=== PATIENT | male | born 1940 ===

== ENCOUNTER 2018-12-03 07:36 | Inpatient (IN) | payer MEDICARE ==
[2018-12-03] MEDS ORDERED: Sodium Chloride 0.9% 500 ML IV STA (08:27)
[2018-12-03] MEDS ORDERED: Albuterol-Ipratrop 3 mg / 0.5 (3 ml) UD IH STA (08:27)
--- NOTE | 2018-12-03 08:29 | ED PDOC ---
HPI: General Adult Time Seen by Provider: 12/03/18 07:45 Chief Complaint (Nursing): Shortness Of Breath Chief Complaint (Provider): Bodyaches History Per: Patient, Family History/Exam Limitations: no limitations Onset/Duration Of Symptoms: Days (3 months) Additional Complaint(s): Pt. with body aches for 3 months. Has chest pain, dyspnea. 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 He is to get biopsies done, but with increased symptoms came to the ER. No nausea, vomit, diarrhea, weakness. No fever. Is losing voice for sometime. No sore throat. No numbness, tingles. Sees Dr. Manda Benavides. Is on no meds and no tx yet. Tumors still getti ng evaluated. Past Medical History Reviewed: Nursing Documentation, Vital Signs Vital Signs: Last Vital Signs Temp 97 F L 12/03/18 07:47 Pulse 84 12/03/18 07:47 Resp 18 12/03/18 07:47 BP 128/74 12/03/18 07:47 Pulse Ox 98 12/03/18 08:27 - Medical History Other PMH: tumors - Family History Family History: States: Unknown Family Hx - Living Arrangements Living Arrangements: With Family - Allergies Allergies/Adverse Reactions: Allergies Allergy/AdvReac Type Severity Reaction Status Date / Time Penicillins Allergy Verified 12/03/18 08:13 Review of Systems ROS Statement: Except As Marked, All Systems Reviewed And Found Negative Cardiovascular: Positive for: Chest Pain Respiratory: Positive for: Shortness of Breath Musculoskeletal: Positive for: Other (diffuse pain) Physical Exam - Reviewed Nursing Documentation Reviewed: Yes Vital Signs Reviewed: Yes - Physical Exam Appears: Positive for: Non-toxic, No Acute Distress Head Exam: Positive for: ATRAUMATIC, NORMAL INSPECTION, NORMOCEPHALIC Skin: Positive for: Normal Color, Warm, DRY Eye Exam: Positive for: EOMI, Normal appearance, PERRL ENT: Positive for: Normal ENT Inspection Neck: Positive for: Normal, Painless ROM Cardiovascular/Chest: Positive for: Regular Rate, Rhythm. Negative for: Tachycardia Respiratory: Positive for: Decreased Breath Sounds. Negative for: Accessory Muscle Use Gastrointestinal/Abdominal: Positive for: Normal Exam, Soft. Negative for: Tenderness Back: Positive for: Normal Inspection. Negative for: L CVA Tenderness, R CVA Tenderness Extremity: Positive for: Normal ROM. Negative for: Tenderness, Pedal Edema Neurological/Psych: Positive for: Awake, Alert, Normal Tone, furniture and bedding inspector II-XII. Negative for: Facial Droop - Laboratory Results Result Diagrams: 12/03/18 08:45 12/03/18 08:45 Lab Results: 11.3 wbc, lacatate 2.5 - ECG ECG: Positive for: Interpreted By Me, Viewed By Me ECG Rhythm: Positive for: Normal QRS, Normal ST Segment, Sinus Rhythm O2 Sat by Pulse Oximetry: 98 Pulse Ox Interpretation: Normal - CT Scan/US ct Other Rad Studies (CT/US): Read By Radiologist Other Rad Interpretation: mass on lob left, mass effect on some vessels - Progress ED Course And Treament: 1200: Spoke with Dr. Yepez. Will admit. AAOx3. Continue nasal oxygen. Disposition - Clinical Impression Clinical Impression: Hypoxia, Lung mass - Patient ED Disposition Is Patient to be Admitted: Yes Counseled Patient/Family Regarding: Studies Performed, Diagnosis - Disposition Disposition Time: 12:01 Condition: FAIR - Pt Status Changed To: Hospital Disposition Of: Inpatient - Admit Certification Admit to Inpatient:: After my assessment, the patient will require hospitalization for at least two midnights. This is because of the severity of symptoms shown, intensity of services needed, and/or the medical risk in this patient being treated as an outpatient. - POA Present On Arrival: None
[2018-12-03] MEDS ORDERED: Albuterol-Ipratrop 3 mg / 0.5 (3 ml) UD ONE (08:46)
[2018-12-03 09:07] LABS: BASO # 0.1 K/uL (0.0-0.2); BASO % 0.5 % (0.0-2.0); EOS # 0.1 K/uL (0.0-0.7); EOS % 1.2 % (0.0-4.0); HEMOGLOBIN 9.7 g/dL (12.0-18.0); LYMPH # 0.5 K/uL (1.0-4.3); LYMPH % 4.2 % (20.0-40.0); MEAN CELL VOLUME 80.7 fl (80.0-94.0); MEAN CORPUSCULAR HEMOGLOBIN 25.4 pg (27.0-31.0); MEAN CORPUSCULAR HGB CONC 31.5 g/dL (33.0-37.0); MEAN PLATELET VOLUME 7.8 fl (7.2-11.7); MONO # 0.7 K/uL (0.0-0.8); MONO % 5.8 % (0.0-10.0); NEUT % 88.3 % (50.0-75.0); PLATELET COUNT 296 K/uL (130-400); RED CELL DISTRIBUTION WIDTH 16.3 % (11.5-14.5); WHITE BLOOD COUNT 11.3 K/uL (4.8-10.8)
[2018-12-03 09:11] LABS: ABG ALLEN TEST YES; ARTERIAL BLOOD GAS HCO3 26.4 mmol/L (21-28); ARTERIAL BLOOD GAS O2 SAT 50.9 % (95-98); ARTERIAL BLOOD GAS PCO2 52 mm/Hg (35-45); ARTERIAL BLOOD GAS PH 7.37 (7.35-7.45); ARTERIAL BLOOD GAS PO2 27 mm/Hg (80-100); ARTERIAL BLOOD GAS TCO2 31.7 mmol/L (22-28)
[2018-12-03 09:21] LABS: INR 1.3; PROTHROMBIN TIME 14.7 Seconds (9.8-13.1)
[2018-12-03 09:23] LABS: ALB/GLOB RATIO 0.9 (1.0-2.1); ALBUMIN 2.6 g/dL (3.5-5.0); ALT/SGPT 44 U/L (21-72); AST/SGOT 21 U/L (17-59); BLOOD UREA NITROGEN 21 mg/dl (9-20); CALCIUM 7.7 mg/dL (8.4-10.2); GFR NON-AFRICAN AMERICAN > 60
[2018-12-03 09:24] LABS: PARTIAL THROMBOPLASTIN TIME 28.3 Seconds (25.6-37.1)
[2018-12-03 09:30] LABS: B-TYPE NATRIURETIC PEPTIDE 542 pg/ml (0-900)
[2018-12-03] MEDS ORDERED: Sodium Chloride 0.9% 50 ML IV ONE (10:02)
[2018-12-03] MEDS ORDERED: Iodixanol 320 MG/ML 100 ML BOTTLE IV ONE (10:02)
[2018-12-03 10:32] LABS: BANDS 2 % (0-2); EOSINOPHIL 3 % (0-7); LYMPHOCYTE 4 % (20-50); MONOCYTE 3 % (0-10); NEUTROPHIL 88 % (42-75); TOTAL CELLS COUNTED 100
[2018-12-03 10:33] LABS: ANISOCYTOSIS SLIGHT; HYPOCHROMIC MODERATE; OVALOCYTES SLIGHT; PLATELET CLUMPS PRESENT; PLATELET ESTIMATE NORMAL (NORMAL)
--- NOTE | 2018-12-03 11:08 | RAD ---
Date of service: 12/03/2018 HISTORY: dyspnea COMPARISON: No prior. TECHNIQUE: 1 view obtained. FINDINGS: LUNGS: Extensive opacity at both lung bases. Possible consolidation. Follow-up advised. PLEURA: Probable small bilateral pleural effusion. No pneumothorax. CARDIOVASCULAR: No aortic atherosclerotic calcification present. Normal cardiac size. No pulmonary vascular congestion. OSSEOUS STRUCTURES: No significant abnormalities. VISUALIZED UPPER ABDOMEN: Normal. OTHER FINDINGS: None. IMPRESSION: Extensive bilateral basilar consolidation. Probable small bilateral pleural effusion. Follow-up advised.
--- NOTE | 2018-12-03 11:24 | CT ---
Date of service: 12/03/2018 PROCEDURE: CT Chest with contrast (Pulmonary Angiogram) HISTORY: chest pain COMPARISON: None available. TECHNIQUE: Axial computed tomography images were obtained of the chest in the pulmonary arterial phase of enhancement. Coronal and sagittal reformatted images were created and reviewed. Intravenous contrast dose: 99 cc Visipaque 320 Radiation dose: Total exam DLP = 287.24 mGy-cm. This CT exam was performed using one or more of the following dose reduction techniques: Automated exposure control, adjustment of the mA and/or kV according to patient size, and/or use of iterative reconstruction technique. FINDINGS: PULMONARY ARTERIES: No evidence of pulmonary arterial embolism. 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 There is narrowing of left pulmonary arterial branches as a result of narrowing from neoplastic tissue. There is no evidence of pulmonary arterial branch occlusion. AORTA: No acute findings. No thoracic aortic aneurysm. There is atherosclerotic calcification of the thoracic aorta. LUNGS: There is a lobulated soft tissue mass in the left hemithorax predominantly occupying the left lower lobe, measuring approximately 8.9 x 13.1 x 11.5 cm. There is mass effect upon the heart shifting the heart somewhat towards the right side. There is direct extension of this soft tissue mass to the left hilum. There are enhancing vessel seen coursing throughout this soft tissue mass. There is a small partially solid opacity in the lingular segment of the left upper lobe measuring approximately 10 mm in diameter. This is seen on series 5, image 62. This is nonspecific and could represent neoplasm or small focal infiltrate. PLEURAL SPACES: There is a moderate right pleural effusion with loculation. There is minimal left pleural effusion. There is a small amount of fluid seen in the right major fissure. HEART: Normal heart size. LYMPH NODES: Extensive mediastinal and bilateral hilar lymphadenopathy. BONES, CHEST WALL: Unremarkable. No fracture or destructive lesion OTHER FINDINGS: Unremarkable. IMPRESSION: 13 cm soft tissue mass occupying the left lower lobe. Direct extension to the left hilum and mediastinum with right hilar lymphadenopathy as well. Loculated right pleural effusion. Minimal left pleural effusion. There is narrowing of the right main pulmonary artery as well as of multiple left pulmonary artery branches, as result of neoplastic mass effect. No evidence of arterial occlusion. No evidence of pulmonary arterial embolism.
[2018-12-03 12:12] LABS: URINE BILIRUBIN NEGATIVE (NEGATIVE); URINE BLOOD NEGATIVE (NEGATIVE); URINE CLARITY SLIGHTY-CLOUDY (Clear); URINE COLOR YELLOW (YELLOW); URINE GLUCOSE (UA) NEG (NEGATIVE); URINE LEUKOCYTE ESTERASE NEG Leu/uL (Negative); URINE PROTEIN 30 mg/dL (NEGATIVE); URINE UROBILINOGEN 0.2-1.0 mg/dL (0.2-1.0)
[2018-12-03] MEDS ORDERED: Morphine 4 MG/ML VIAL IVP PRN ×2 (13:40→14:24)
--- NOTE | 2018-12-03 13:46 | CP.PCM.HP ---
<Pushpa Sofia - Last Filed: 12/03/18 15:53> History of Present Illness - History of Present Illness History of Present Illness: 78-year-old male with PMH of left lower lobe mass and sigmoid colon mass presents to [facility] ED for diffuse body aches, severe right-sided mid-axillary/anterior-axillary pain, left groin pain (at location of hernia), and SOB. Pain began last month but has gotten progressively worse in the last few days. Pt's daughter and medical decision maker present bedside, states he has lost 50 lbs in 1 month, is very weak, unable to ambulate, and has many bouts of hemoptysis daily. Daughter and grandson aware of poor prognosis and would like to progress with comfort care for end of life. Code status unknown as other daughter has advanced directive forms - will bring to [facility] tomorrow. PMD: Dr Irene Oncologist: Dr Manda Shah PMH: denies Meds: denies Allergy: penicillin FHx: denies Surgical Hx: denies Social: denies etoh and illicit drugs, former smoker ROS: all other systems reviewed and negative unless otherwise noted in HPI. Present on Admission - Present on Admission Any Indicators Present on Admission: No Review of Systems - Constitutional Constitutional: As Per HPI Past Patient History - Infectious Disease Hx of Infectious Diseases: None - Past Social History Smoking Status: Former Smoker - PULMONARY Other/Comment: lung CA - HEENT Hx Deafness: Yes (lt. ear hearing aid) - GASTROINTESTINAL Other/Comment: colon tumor - PSYCHIATRIC Hx Substance Use: No - SURGICAL HISTORY Hx Parathyroidectomy: Yes Other/Comment: ear sx Meds Home Medications: Home Medication List Medication Instructions Recorded Confirmed Type Fentanyl 1 each TD Q72 #2 patch.td72 12/04/18 Rx Morphine [Morphine Sulfate] 15 mg PO PRN PRN #3 tab 12/04/18 Rx Allergies/Adverse Reactions: Allergies Allergy/AdvReac Type Severity Reaction Status Date / Time Penicillins Allergy Verified 12/03/18 08:13 Physical Exam - Constitutional Appears: Cachectic, Chronically Ill - Head Exam Head Exam: NORMAL INSPECTION - ENT Exam ENT Exam: Mucous Membranes Dry - Respiratory Exam Respiratory Exam: Chest Wall Tenderness, Decreased Breath Sounds - Cardiovascular Exam Cardiovascular Exam: REGULAR RHYTHM - GI/Abdominal Exam GI & Abdominal Exam: Soft. absent: Tenderness - Extremities Exam Extremities exam: Positive for: normal inspection - Neurological Exam Neurological exam: Alert - Psychiatric Exam Psychiatric exam: Anxious, Depressed - Skin Skin Exam: Pallor Results - Vital Signs Recent Vital Signs: Last Vital Signs Temp 97.7 F 12/03/18 12:41 Pulse 84 12/03/18 12:41 Resp 18 12/03/18 12:41 BP 137/76 12/03/18 12:41 Pulse Ox 96 12/03/18 12:41 - Labs Result Diagrams: 12/03/18 14:13 12/03/18 14:13 Labs: Laboratory Results - last 24 hr 12/03/18 12/03/18 12/03/18 08:45 08:45 08:45 WBC 11.3 H RBC 3.80 L Hgb 9.7 L Hct 30.7 L MCV 80.7 MCH 25.4 L MCHC 31.5 L RDW 16.3 H Plt Count 296 MPV 7.8 Neut % (Auto) 88.3 H Lymph % (Auto) 4.2 L [place] % (Auto) 5.8 Eos % (Auto) 1.2 Baso % (Auto) 0.5 Neut # (Auto) 10.0 H Lymph # (Auto) 0.5 L [place] # (Auto) 0.7 Eos # (Auto) 0.1 Baso # (Auto) 0.1 Neutrophils % (Manual) 88 H Band Neutrophils % 2 Lymphocytes % (Manual) 4 L Monocytes % (Manual) 3 Eosinophils % (Manual) 3 Platelet Estimate Normal Plt Clumps, EDTA Present Hypochromasia (manual) Moderate Anisocytosis (manual) Slight Ovalocytes Slight PT 14.7 H INR 1.3 APTT 28.3 pCO2 pO2 HCO3 ABG pH ABG Total CO2 ABG O2 Saturation ABG Base Excess Johnny Test ABG Potassium Glucose Lactate FiO2 Blood Gas Comments Crit Value Called To Crit Value Called By Crit Value Read Back Blood Gas Notified Time Sodium 137 Potassium 4.2 Chloride 101 Carbon Dioxide 32 H Anion Gap 8 L BUN 21 H Creatinine 0.6 L Est GFR ( Amer) > 60 Est GFR (Non-Af Amer) > 60 Random Glucose 181 H Calcium 7.7 L Total Bilirubin 0.5 AST 21 ALT 44 Alkaline Phosphatase 89 Troponin I < 0.0120 NT-Pro-B Natriuret Pep 542 Total Protein 5.7 L Albumin 2.6 L D Globulin 3.1 Albumin/Globulin Ratio 0.9 L Arterial Blood Potassium Urine Color Urine Clarity Urine pH Ur Specific [place] Urine Protein Urine Glucose (UA) Urine Ketones Urine Blood Urine Nitrate Urine Bilirubin Urine Urobilinogen Ur Leukocyte Esterase Urine RBC (Auto) Urine Microscopic WBC 12/03/18 12/03/18 09:01 11:43 WBC RBC Hgb Hct MCV MCH MCHC RDW Plt Count MPV Neut % (Auto) Lymph % (Auto) [place] % (Auto) Eos % (Auto) Baso % (Auto) Neut # (Auto) Lymph # (Auto) [place] # (Auto) Eos # (Auto) Baso # (Auto) Neutrophils % (Manual) Band Neutrophils % Lymphocytes % (Manual) Monocytes % (Manual) Eosinophils % (Manual) Platelet Estimate Plt Clumps, EDTA Hypochromasia (manual) Anisocytosis (manual) Ovalocytes PT INR APTT pCO2 52 H pO2 27 L* HCO3 26.4 ABG pH 7.37 ABG Total CO2 31.7 H ABG O2 Saturation 50.9 L ABG Base Excess 3.6 H Johnny Test Yes ABG Potassium 4.1 Glucose 169 H Lactate 2.5 H FiO2 21.0 Blood Gas Comments Lac=2.5 Crit Value Called To radha Cat Crit Value Called By 22 Crit Value Read Back Y Blood Gas Notified Time 911 Sodium 138.0 Potassium Chloride 102.0 Carbon Dioxide Anion Gap BUN Creatinine Est GFR ( Amer) Est GFR (Non-Af Amer) Random Glucose Calcium Total Bilirubin AST ALT Alkaline Phosphatase Troponin I NT-Pro-B Natriuret Pep Total Protein Albumin Globulin Albumin/Globulin Ratio Arterial Blood Potassium 4.1 Urine Color Yellow Urine Clarity Slighty-cloudy Urine pH 6.0 Ur Specific [place] 1.054 H Urine Protein 30 Urine Glucose (UA) Neg Urine Ketones Negative Urine Blood Negative Urine Nitrate Negative Urine Bilirubin Negative Urine Urobilinogen 0.2-1.0 Ur Leukocyte Esterase Neg Urine RBC (Auto) 4 H Urine Microscopic WBC 1 Assessment & Plan - Assessment and Plan (Free Text) Assessment: 78-year-old male with PMH of left lower lobe mass and sigmoid colon mass presents to [facility] ED for diffuse body aches, severe right-sided mid-axillary/anterior-axillary pain, left groin pain (at location of hernia), difficulty swallowing and SOB. Abd/Pelvis CT (11/26): 1. apparent 3.7x3.4cm soft tissue mass in the sigmoid colon concerning for neoplasm. Please correlate with endoscopy. 2. Incompletely imaged and characterized mass with central areas of necrosis and few specks of calcification in the left lower lobe. A dedicated CT scan of the chest w/w/out IV contrast is rec for complete eval. Small pleural effusions. 3. Indeterminante 2.0x1.7cm right adrenal gland nodule which may be benign or malignant in this clinical setting. A dedicated CT scan/MRI of the abdomen w/ and w/out IV contrast with adrenal gland protocol would be helpful for definitive characteri zation. Chest CT (12/03): 13cm soft tissue mass occupying the left lower lobe. Direct extension to the left hilum and mediastinum with right hilar lymphadenopathy as well. Loculated right pleaural effusion. Minimal left pleural effusion. There is narrowing of the right main pulmonary artery as well as of multiple left pulmonary artery branches, as result of neoplastic mass effect. No evidence of arterial occlusion. No evidence of pulmonary arterial embolism. Plan: Hypoxia secondary to mass effect d/t lung mass -pO2 27, pCO2 52, ABG O2 sat 50.9 -Requiring O2 NC to maintain SPO2 >93% -Pain control PRN: Ultram 50 mild pain, Morphine 2gm moderate pain, Morphine 4gm severe pain -Oncology consult, Dr Shah, inputs and rec appreciated -Pallative care consult, input and rec appreciated -Regular diet -Monitor respiratory status DVT Prophylaxis -SCD Code Status -Code status: Unknown -Full code; advance directive brought tomorrow <Nai Yepez - Last Filed: 12/05/18 15:50> Results - Vital Signs Recent Vital Signs: Last Vital Signs Temp 97.1 F L 12/04/18 15:15 Pulse 77 12/04/18 15:15 Resp 18 12/04/18 15:15 BP 135/70 12/04/18 15:15 Pulse Ox 95 12/04/18 15:15 - Labs Result Diagrams: 12/03/18 14:13 12/03/18 14:13 Attending/Attestation - Attestation I have personally seen and examined this patient.: Yes I have fully participated in the care of the patient.: Yes I have reviewed all pertinent clinical information: Yes Notes (Text): This is a 78-year-old male with a past medical history of both sigmoid colon mass as well as a mass in his left lower lung lobe. He presented with hypoxia, diffuse body aches as well as severe right mid axillary tenderness due to soft tissue mass appreciated. Hematology oncology consult appreciated, patient to receive further imaging studies to evaluate extent of metastatic disease. Pain control at this time with morphine as well as fentanyl for maintenance. Patient also meet with palliative care for home hospice consideration.
[2018-12-03 14:36] LABS: HEMOGLOBIN 10.8 g/dL (12.0-18.0); MEAN CELL VOLUME 80.3 fl (80.0-94.0); MEAN CORPUSCULAR HEMOGLOBIN 25.3 pg (27.0-31.0); MEAN CORPUSCULAR HGB CONC 31.5 g/dL (33.0-37.0); RBC 4.25 Mil/uL (4.40-5.90); RED CELL DISTRIBUTION WIDTH 16.1 % (11.5-14.5); WHITE BLOOD COUNT 11.4 K/uL (4.8-10.8)
[2018-12-03 14:38] LABS: BLOOD UREA NITROGEN 19 mg/dl (9-20); CALCIUM 8.2 mg/dL (8.4-10.2); GFR NON-AFRICAN AMERICAN > 60
--- NOTE | 2018-12-03 15:27 | CP.PCM.CON ---
History of Present Illness - History of Present Illness History of Present Illness: Palliative Care consult requested by Dr. Sofia Patient is a 78 year old who presented to the ED complaining of body aches for the past 3 months. He also complained of chest pain and dyspnea. He was diagnosed with pulmonary tumors and ct scan showed the same in adreanl glands and other areas. Patient was pending biopsies but family decided to bring patient to the ED because he was symptomatic and pt had lost a lot of weight in just 1 month. Patient currently in the ER waiting for bed on the Medical surgical floor. PMH: Pulmonary tumors Soc hx: lives with and daughter, family denies smoking,etoh, or drug use Fam hx: unknown CXR 12/03 extensive bilateral basilar consolidation. probable small bilateral pleural effusion Chest CT 12/03 13cm soft tissue mass occupying the left lower lobe Review of Systems - Review of Systems Systems not reviewed;Unavailable: Acuity of Condition, Altered Mental Status Review of Systems: ROS unable to attain due to patient altered mental status and patient having a hard time speaking . Certified intrepretor service used to interview patient, ROS obtained from daughter eva - Constitutional Constitutional: Weight Loss - EENT Nose/Mouth/Throat: Dysphagia - Musculoskeletal Additional comments: unable to ambulate Past Patient History - Infectious Disease Hx of Infectious Diseases: None - Past Social History Smoking Status: Former Smoker - PULMONARY Other/Comment: lung CA - HEENT Hx Deafness: Yes (lt. ear hearing aid) - GASTROINTESTINAL Other/Comment: colon tumor - PSYCHIATRIC Hx Substance Use: No - SURGICAL HISTORY Hx Parathyroidectomy: Yes Other/Comment: ear sx Meds Allergies/Adverse Reactions: Allergies Allergy/AdvReac Type Severity Reaction Status Date / Time Penicillins Allergy Verified 12/03/18 08:13 - Medications Medications: Current Medications Morphine Sulfate (Morphine) 4 mg IVP Q4 PRN PRN Reason: Pain, severe (8-10) Morphine Sulfate (Morphine) 2 mg IVP Q4 PRN PRN Reason: Pain, moderate (4-7) Tramadol HCl (Ultram) 50 mg PO Q6 PRN PRN Reason: Pain, Mild (1-3) Physical Exam - Constitutional Appears: No Acute Distress, Confused, Cachectic, Chronically Ill - Head Exam Head Exam: ATRAUMATIC, NORMAL INSPECTION, NORMOCEPHALIC - Eye Exam Eye Exam: Normal appearance, PERRL - ENT Exam ENT Exam: Mucous Membranes Moist Additional comments: difficulty speaking - Respiratory Exam Respiratory Exam: Decreased Breath Sounds - GI/Abdominal Exam GI & Abdominal Exam: Soft - Rectal Exam Rectal Exam: Deferred - Neurological Exam Neurological exam: Alert, Altered Additional comments: oriented to person, hospital certified utility teller service used to interview patient - Psychiatric Exam Psychiatric exam: Anxious, Flat Affect - Skin Skin Exam: Dry, Warm Results - Vital Signs Recent Vital Signs: Last Vital Signs Temp 97.7 F 12/03/18 12:41 Pulse 84 12/03/18 12:41 Resp 18 12/03/18 12:41 BP 137/76 12/03/18 12:41 Pulse Ox 96 12/03/18 12:41 - Labs Result Diagrams: 12/03/18 14:13 12/03/18 14:13 Labs: Laboratory Results - last 24 hr 12/03/18 12/03/18 12/03/18 08:45 08:45 08:45 WBC 11.3 H RBC 3.80 L Hgb 9.7 L Hct 30.7 L MCV 80.7 MCH 25.4 L MCHC 31.5 L RDW 16.3 H Plt Count 296 MPV 7.8 Neut % (Auto) 88.3 H Lymph % (Auto) 4.2 L [place] % (Auto) 5.8 Eos % (Auto) 1.2 Baso % (Auto) 0.5 Neut # (Auto) 10.0 H Lymph # (Auto) 0.5 L [place] # (Auto) 0.7 Eos # (Auto) 0.1 Baso # (Auto) 0.1 Neutrophils % (Manual) 88 H Band Neutrophils % 2 Lymphocytes % (Manual) 4 L Monocytes % (Manual) 3 Eosinophils % (Manual) 3 Platelet Estimate Normal Plt Clumps, EDTA Present Hypochromasia (manual) Moderate Anisocytosis (manual) Slight Ovalocytes Slight PT 14.7 H INR 1.3 APTT 28.3 pCO2 pO2 HCO3 ABG pH ABG Total CO2 ABG O2 Saturation ABG Base Excess Johnny Test ABG Potassium Glucose Lactate FiO2 Blood Gas Comments Crit Value Called To Crit Value Called By Crit Value Read Back Blood Gas Notified Time Sodium 137 Potassium 4.2 Chloride 101 Carbon Dioxide 32 H Anion Gap 8 L BUN 21 H Creatinine 0.6 L Est GFR ( Amer) > 60 Est GFR (Non-Af Amer) > 60 Random Glucose 181 H Calcium 7.7 L Total Bilirubin 0.5 AST 21 ALT 44 Alkaline Phosphatase 89 Troponin I < 0.0120 NT-Pro-B Natriuret Pep 542 Total Protein 5.7 L Albumin 2.6 L D Globulin 3.1 Albumin/Globulin Ratio 0.9 L Arterial Blood Potassium Urine Color Urine Clarity Urine pH Ur Specific [place] Urine Protein Urine Glucose (UA) Urine Ketones Urine Blood Urine Nitrate Urine Bilirubin Urine Urobilinogen Ur Leukocyte Esterase Urine RBC (Auto) Urine Microscopic WBC 12/03/18 12/03/18 12/03/18 09:01 11:43 14:13 WBC 11.4 H RBC 4.25 L Hgb 10.8 L Hct 34.2 L MCV 80.3 MCH 25.3 L MCHC 31.5 L RDW 16.1 H Plt Count 337 MPV Neut % (Auto) Lymph % (Auto) [place] % (Auto) Eos % (Auto) Baso % (Auto) Neut # (Auto) Lymph # (Auto) [place] # (Auto) Eos # (Auto) Baso # (Auto) Neutrophils % (Manual) Band Neutrophils % Lymphocytes % (Manual) Monocytes % (Manual) Eosinophils % (Manual) Platelet Estimate Plt Clumps, EDTA Hypochromasia (manual) Anisocytosis (manual) Ovalocytes PT INR APTT pCO2 52 H pO2 27 L* HCO3 26.4 ABG pH 7.37 ABG Total CO2 31.7 H ABG O2 Saturation 50.9 L ABG Base Excess 3.6 H Johnny Test Yes ABG Potassium 4.1 Glucose 169 H Lactate 2.5 H FiO2 21.0 Blood Gas Comments Lac=2.5 Crit Value Called To radha Cat Crit Value Called By 22 Crit Value Read Back Y Blood Gas Notified Time 911 Sodium 138.0 Potassium Chloride 102.0 Carbon Dioxide Anion Gap BUN Creatinine Est GFR ( Amer) Est GFR (Non-Af Amer) Random Glucose Calcium Total Bilirubin AST ALT Alkaline Phosphatase Troponin I NT-Pro-B Natriuret Pep Total Protein Albumin Globulin Albumin/Globulin Ratio Arterial Blood Potassium 4.1 Urine Color Yellow Urine Clarity Slighty-cloudy Urine pH 6.0 Ur Specific [place] 1.054 H Urine Protein 30 Urine Glucose (UA) Neg Urine Ketones Negative Urine Blood Negative Urine Nitrate Negative Urine Bilirubin Negative Urine Urobilinogen 0.2-1.0 Ur Leukocyte Esterase Neg Urine RBC (Auto) 4 H Urine Microscopic WBC 1 12/03/18 14:13 WBC RBC Hgb Hct MCV MCH MCHC RDW Plt Count MPV Neut % (Auto) Lymph % (Auto) [place] % (Auto) Eos % (Auto) Baso % (Auto) Neut # (Auto) Lymph # (Auto) [place] # (Auto) Eos # (Auto) Baso # (Auto) Neutrophils % (Manual) Band Neutrophils % Lymphocytes % (Manual) Monocytes % (Manual) Eosinophils % (Manual) Platelet Estimate Plt Clumps, EDTA Hypochromasia (manual) Anisocytosis (manual) Ovalocytes PT INR APTT pCO2 pO2 HCO3 ABG pH ABG Total CO2 ABG O2 Saturation ABG Base Excess Johnny Test ABG Potassium Glucose Lactate FiO2 Blood Gas Comments Crit Value Called To Crit Value Called By Crit Value Read Back Blood Gas Notified Time Sodium 136 Potassium 4.4 Chloride 101 Carbon Dioxide 26 Anion Gap 13 BUN 19 Creatinine 0.6 L Est GFR ( Amer) > 60 Est GFR (Non-Af Amer) > 60 Random Glucose 298 H Calcium 8.2 L Total Bilirubin AST ALT Alkaline Phosphatase Troponin I NT-Pro-B Natriuret Pep Total Protein Albumin Globulin Albumin/Globulin Ratio Arterial Blood Potassium Urine Color Urine Clarity Urine pH Ur Specific [place] Urine Protein Urine Glucose (UA) Urine Ketones Urine Blood Urine Nitrate Urine Bilirubin Urine Urobilinogen Ur Leukocyte Esterase Urine RBC (Auto) Urine Microscopic WBC Assessment & Plan - Assessment and Plan (Free Text) Assessment: Examined patient in bed, patient is not in acute distress, no complaints of pain. Patient has difficulty speaking and is only able to say a few words at a time. Goals of Care: discussed with patient's daughter Eva Ocampo ([phone]) who is decision maker. She states that she would like comfort care for her father at this time. She does not want aggressive management. Options discussed with patient and she agreed to hospice eval tomorrow. She will document these goals of care in POLST form when she comes to hospital tomorrow. ED RN Bárbara made aware and Dr. Sofia also made aware. Code Status: Daughter states that she would like father to be DNR/DNI. She was educated on meaning of each, she verbalized understanding and confirmed that that is her wishes. She will come tomorrow at 9:00am to sign POLST form reflecting these decisions. Impression Lung Mass SOB Dysphagia Pain Decreased Mobility Suggestion Hospice Eval for tomorrow Swallow eval Frequent pain assessments (q4h) (PO and IV meds already ordered prn) Max assist with ADLs reposition q2h will document Goals of Care and Code status on POLST form when daughter comes tomorrow Palliative care will remain on board as needed Advanced care planning 60 min
--- NOTE | 2018-12-03 23:03 | CARD ---
APPROVED REPORT Date of service: 12/03/2018 EKG Measurement Heart [id number] <Conclusion> Normal sinus rhythm Possible Left atrial enlargement Borderline ECG
--- NOTE | 2018-12-04 09:29 | CP.PCM.CON ---
History of Present Illness - History of Present Illness History of Present Illness: This is a 78 yrs old male 2wgo over the past 2 months has lost about 50 lbs. His voice was gradually becoming more and more hoarse and he was seen by his primary physician who sent him for a ct of the chest. The reading was that pt had a large left lower lung mass, extending to the mediastinum,with involvement of the recurrent laryngeal nerve and pulmonary artery. he also had some pleural effusion on the right side. He was c/o severe pain in a mass 3-4 cm in size on the right rib cage (which was not reported on the CT scan) and a mass in the groin. The groin mass was a hernia, and he was referred to a surgeon who reduced the mass in the office,and the paun is much reduced since then. The pain in the right rib cage continues. He was also found to have a 3.5 cm mass in the sigmoid colon, and left adrenal mass. He was very frail and short of breath, and the surgeon did not feel he could get any anesthesia, because of the lung and pulmonary involvement. he was of the same opinion His pain continued as did the shortness of breath, so he was brought to the ER. His pulse ox was very low,and he was in pain. He was admitted and given morphine to alleviate his pain and pt has done well. he may need a thoracentesis on the right side or a biopsy of the right rib mass. The protgnosis id very poor. He was a heavy smoker in the past, but not any more. 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 ear hearing aid) - RENAL Hx Chronic Kidney Disease: No - ENDOCRINE/METABOLIC Other/Comment: Parathyroidism - HEMATOLOGICAL/ONCOLOGICAL Hx Blood Disorders: No Hx AIDS: No Hx Blood Transfusions: No Hx Bruising: No Hx Human Immunodeficiency Virus (HIV): No Hx Leukemia: No Hx Metastesis: No Hx Shingles: No Hx Sickle Cell Disease: No Hx Unexplained Bleeding: No Hx von Willebrand's Disease: No - INTEGUMENTARY Hx Dermatological Problems: No Hx Basil Cell: No - MUSCULOSKELETAL/RHEUMATOLOGICAL Hx Musculoskeletal Disorders: No Hx Falls: No - GASTROINTESTINAL Hx Gastrointestinal Disorders: Yes Other/Comment: colon tumor - GENITOURINARY/GYNECOLOGICAL Hx Genitourinary Disorders: No - PSYCHIATRIC Hx Psychophysiologic Disorder: No Hx Substance Use: No - SURGICAL HISTORY Hx Surgeries: Yes Hx Parathyroidectomy: Yes Other/Comment: ear sx - ANESTHESIA Hx Anesthesia: Yes Hx Anesthesia Reactions: Yes Meds Allergies/Adverse Reactions: Allergies Allergy/AdvReac Type Severity Reaction Status Date / Time Penicillins Allergy Verified 12/03/18 08:13 - Medications Medications: Current Medications Morphine Sulfate (Morphine) 4 mg IVP Q4 PRN PRN Reason: Pain, severe (8-10) Morphine Sulfate (Morphine) 2 mg IVP Q4 PRN PRN Reason: Pain, moderate (4-7) Last Admin: 12/04/18 03:34 Dose: 2 mg Tramadol HCl (Ultram) 50 mg PO Q6 PRN PRN Reason: Pain, Mild (1-3) Physical Exam - Additional Findings Additional findings: Physical exam; He is very thin with evidence of recent weight loss.. Voice is very hoarse,so it is hard to unsed stand, neck; supple, no adenopathy Chest; Air diminished left lung right is better. no rales or rhonchi. mass on the right chest wall, and,tender Heart; RSR, no murmur Abd; soft, no mass, no h/s megaly Results - Vital Signs Recent Vital Signs: Last Vital Signs Temp 97.5 F L 12/04/18 07:58 Pulse 67 12/04/18 07:58 Resp 19 12/04/18 07:58 BP 117/62 12/04/18 07:58 Pulse Ox 94 L 12/04/18 07:58 - Labs Result Diagrams: 12/03/18 14:13 12/03/18 14:13 Labs: Laboratory Results - last 24 hr 12/03/18 12/03/18 12/03/18 08:45 08:45 08:45 WBC 11.3 H RBC 3.80 L Hgb 9.7 L Hct 30.7 L MCV 80.7 MCH 25.4 L MCHC 31.5 L RDW 16.3 H Plt Count 296 MPV 7.8 Neut % (Auto) 88.3 H Lymph % (Auto) 4.2 L [place] % (Auto) 5.8 Eos % (Auto) 1.2 Baso % (Auto) 0.5 Neut # (Auto) 10.0 H Lymph # (Auto) 0.5 L [place] # (Auto) 0.7 Eos # (Auto) 0.1 Baso # (Auto) 0.1 Neutrophils % (Manual) 88 H Band Neutrophils % 2 Lymphocytes % (Manual) 4 L Monocytes % (Manual) 3 Eosinophils % (Manual) 3 Platelet Estimate Normal Plt Clumps, EDTA Present Hypochromasia (manual) Moderate Anisocytosis (manual) Slight Ovalocytes Slight PT 14.7 H INR 1.3 APTT 28.3 pCO2 pO2 HCO3 ABG pH ABG Total CO2 ABG O2 Saturation ABG Base Excess Johnny Test ABG Potassium Glucose Lactate FiO2 Blood Gas Comments Crit Value Called To Crit Value Called By Crit Value Read Back Blood Gas Notified Time Sodium 137 Potassium 4.2 Chloride 101 Carbon Dioxide 32 H Anion Gap 8 L BUN 21 H Creatinine 0.6 L Est GFR ( Amer) > 60 Est GFR (Non-Af Amer) > 60 Random Glucose 181 H Calcium 7.7 L Total Bilirubin 0.5 AST 21 ALT 44 Alkaline Phosphatase 89 Troponin I < 0.0120 NT-Pro-B Natriuret Pep 542 Total Protein 5.7 L Albumin 2.6 L D Globulin 3.1 Albumin/Globulin Ratio 0.9 L Arterial Blood Potassium Urine Color Urine Clarity Urine pH Ur Specific [place] Urine Protein Urine Glucose (UA) Urine Ketones Urine Blood Urine Nitrate Urine Bilirubin Urine Urobilinogen Ur Leukocyte Esterase Urine RBC (Auto) Urine Microscopic WBC 12/03/18 12/03/18 12/03/18 09:01 11:43 14:13 WBC 11.4 H RBC 4.25 L Hgb 10.8 L Hct 34.2 L MCV 80.3 MCH 25.3 L MCHC 31.5 L RDW 16.1 H Plt Count 337 MPV Neut % (Auto) Lymph % (Auto) [place] % (Auto) Eos % (Auto) Baso % (Auto) Neut # (Auto) Lymph # (Auto) [place] # (Auto) Eos # (Auto) Baso # (Auto) Neutrophils % (Manual) Band Neutrophils % Lymphocytes % (Manual) Monocytes % (Manual) Eosinophils % (Manual) Platelet Estimate Plt Clumps, EDTA Hypochromasia (manual) Anisocytosis (manual) Ovalocytes PT INR APTT pCO2 52 H pO2 27 L* HCO3 26.4 ABG pH 7.37 ABG Total CO2 31.7 H ABG O2 Saturation 50.9 L ABG Base Excess 3.6 H Johnny Test Yes ABG Potassium 4.1 Glucose 169 H Lactate 2.5 H FiO2 21.0 Blood Gas Comments Lac=2.5 Crit Value Called To radha Cat Crit Value Called By 22 Crit Value Read Back Y Blood Gas Notified Time 911 Sodium 138.0 Potassium Chloride 102.0 Carbon Dioxide Anion Gap BUN Creatinine Est GFR ( Amer) Est GFR (Non-Af Amer) Random Glucose Calcium Total Bilirubin AST ALT Alkaline Phosphatase Troponin I NT-Pro-B Natriuret Pep Total Protein Albumin Globulin Albumin/Globulin Ratio Arterial Blood Potassium 4.1 Urine Color Yellow Urine Clarity Slighty-cloudy Urine pH 6.0 Ur Specific [place] 1.054 H Urine Protein 30 Urine Glucose (UA) Neg Urine Ketones Negative Urine Blood Negative Urine Nitrate Negative Urine Bilirubin Negative Urine Urobilinogen 0.2-1.0 Ur Leukocyte Esterase Neg Urine RBC (Auto) 4 H Urine Microscopic WBC 1 12/03/18 14:13 WBC RBC Hgb Hct MCV MCH MCHC RDW Plt Count MPV Neut % (Auto) Lymph % (Auto) [place] % (Auto) Eos % (Auto) Baso % (Auto) Neut # (Auto) Lymph # (Auto) [place] # (Auto) Eos # (Auto) Baso # (Auto) Neutrophils % (Manual) Band Neutrophils % Lymphocytes % (Manual) Monocytes % (Manual) Eosinophils % (Manual) Platelet Estimate Plt Clumps, EDTA Hypochromasia (manual) Anisocytosis (manual) Ovalocytes PT INR APTT pCO2 pO2 HCO3 ABG pH ABG Total CO2 ABG O2 Saturation ABG Base Excess Johnny Test ABG Potassium Glucose Lactate FiO2 Blood Gas Comments Crit Value Called To Crit Value Called By Crit Value Read Back Blood Gas Notified Time Sodium 136 Potassium 4.4 Chloride 101 Carbon Dioxide 26 Anion Gap 13 BUN 19 Creatinine 0.6 L Est GFR ( Amer) > 60 Est GFR (Non-Af Amer) > 60 Random Glucose 298 H Calcium 8.2 L Total Bilirubin AST ALT Alkaline Phosphatase Troponin I NT-Pro-B Natriuret Pep Total Protein Albumin Globulin Albumin/Globulin Ratio Arterial Blood Potassium Urine Color Urine Clarity Urine pH Ur Specific [place] Urine Protein Urine Glucose (UA) Urine Ketones Urine Blood Urine Nitrate Urine Bilirubin Urine Urobilinogen Ur Leukocyte Esterase Urine RBC (Auto) Urine Microscopic WBC Assessment & Plan - Assessment and Plan (Free Text) Assessment: Impression; Advanced lung cancer, pathology not known, adrenal mass and mass iin the sigmoid colon 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 I feel he should be on supportive care only. Family will discuss this with him and the palliative care nurse.
--- NOTE | 2018-12-04 10:49 | CP.PCM.PN ---
Subjective - Date & Time of Evaluation Date of Evaluation: 12/04/18 Time of Evaluation: 09:00 - Subjective Subjective: examined patient in bed, no acute distress at this time Objective - Vital Signs/Intake and Output Vital Signs (last 24 hours): Temp Pulse Resp BP Pulse Ox 97.5 F L 67 19 117/62 94 L 12/04/18 07:58 12/04/18 07:58 12/04/18 07:58 12/04/18 07:58 12/04/18 07:58 - Medications Medications: Current Medications Morphine Sulfate (Morphine) 4 mg IVP Q4 PRN PRN Reason: Pain, severe (8-10) Morphine Sulfate (Morphine) 2 mg IVP Q4 PRN PRN Reason: Pain, moderate (4-7) Last Admin: 12/04/18 03:34 Dose: 2 mg Tramadol HCl (Ultram) 50 mg PO Q6 PRN PRN Reason: Pain, Mild (1-3) - Labs Labs: 12/03/18 14:13 12/03/18 14:13 PT 14.7 Seconds (9.8-13.1) H 12/03/18 08:45 INR 1.3 12/03/18 08:45 APTT 28.3 Seconds (25.6-37.1) 12/03/18 08:45 - Constitutional Appears: No Acute Distress, Cachectic, Chronically Ill - Head Exam Head Exam: ATRAUMATIC, NORMAL INSPECTION, NORMOCEPHALIC - Eye Exam Eye Exam: Normal appearance, PERRL - ENT Exam ENT Exam: Mucous Membranes Moist - Respiratory Exam Respiratory Exam: Decreased Breath Sounds - GI/Abdominal Exam GI & Abdominal Exam: Soft, Normal Bowel Sounds - Neurological Exam Neurological Exam: Abnormal Gait, Alert, Awake - Psychiatric Exam Psychiatric exam: Flat Affect - Skin Skin Exam: Dry, Pallor, Warm Assessment and Plan - Assessment and Plan (Free Text) Assessment: Palliative Care examined patient in bed, not in any acute distress. complaining of some right rib pain. Patient seen ambulating with minimal assistance to restroom and ate 100% of breakfast this morning. He is having some difficulty speaking, only able to say a few words at a time Goals of Care: discussed with daughter Eva. She expressed that she only would like limited treatment while patient is in hospital. No major interventions, she is only agreeable to small procedures such as thoracentesis if needed. She would then like to take the patient home for comfort care. She states that her father wishes to be home and not in pain. She is agreeing to a hospice evaluation today. Primary RN and Attending made aware. Code Status: Patient is DNR/DNI. Family educated on code status, family verbalized their understanding and confirmed that is their designation. POLST form signed by patient daughter Eva (decision maker) and placed in patient chart. Primary RN and Attending made aware. Impression Lung Mass SOB Pain Decreased Appetite Suggestion Hospice Eval today Assess for pain q4h (PO and IV meds available) Assist with ambulation, adls, and repositioning Frequent Rounding Agree with DNR/DNI Palliative Care will remain on board as needed Advance care planning 40 min
--- NOTE | 2018-12-04 14:40 | CP.PCM.DIS ---
<Pushpa Sofia - Last Filed: 12/04/18 14:42> Provider - Provider Date of Admission: 12/03/18 11:59 Attending physician: Nai Yepez DO Primary care physician: Thomas Casey MD Consults: 12/03/18 13:45 Palliative Care Consult Stat Comment: Consulting Provider: Dinorah Morelos Physician Instructions: Reason For Exam: end-stage ca x2, family wants comfort care 12/03/18 15:48 Hematology Oncology Consult Routine Comment: Consulting Provider: Cornell Shah Consulting Physician: Cornell Shah Reason for Consult: lung mass effect, colon mass 12/04/18 09:23 Physician Consult Routine Comment: Consulting Provider: Roger Luz Consulting Physician: Roger Luz Reason for Consult: pleural effusion drainage, biopsy Additional Comments: pleural effusion drainage for cytology and biopsy of right chest mass for diagnosis - pt too ill to undergo operative biopsy Time Spent in preparation of Discharge (in minutes): 20 Hospital Course - Lab Results Lab Results: Micro Results 12/03/18 08:45 Blood Blood Culture - Preliminary NO GROWTH AFTER 24 HOURS Most Recent Lab Values WBC 11.4 K/uL (4.8-10.8) H 12/03/18 14:13 RBC 4.25 Mil/uL (4.40-5.90) L 12/03/18 14:13 Hgb 10.8 g/dL (12.0-18.0) L 12/03/18 14:13 Hct 34.2 % (35.0-51.0) L 12/03/18 14:13 MCV 80.3 fl (80.0-94.0) 12/03/18 14:13 MCH 25.3 pg (27.0-31.0) L 12/03/18 14:13 MCHC 31.5 g/dL (33.0-37.0) L 12/03/18 14:13 RDW 16.1 % (11.5-14.5) H 12/03/18 14:13 Plt Count 337 K/uL (130-400) 12/03/18 14:13 MPV 7.8 fl (7.2-11.7) 12/03/18 08:45 Neut % (Auto) 88.3 % (50.0-75.0) H 12/03/18 08:45 Lymph % (Auto) 4.2 % (20.0-40.0) L 12/03/18 08:45 [place] % (Auto) 5.8 % (0.0-10.0) 12/03/18 08:45 Eos % (Auto) 1.2 % (0.0-4.0) 12/03/18 08:45 Baso % (Auto) 0.5 % (0.0-2.0) 12/03/18 08:45 Neut # (Auto) 10.0 K/uL (1.8-7.0) H 12/03/18 08:45 Lymph # (Auto) 0.5 K/uL (1.0-4.3) L 12/03/18 08:45 [place] # (Auto) 0.7 K/uL (0.0-0.8) 12/03/18 08:45 Eos # (Auto) 0.1 K/uL (0.0-0.7) 12/03/18 08:45 Baso # (Auto) 0.1 K/uL (0.0-0.2) 12/03/18 08:45 Neutrophils % (Manual) 88 % (42-75) H 12/03/18 08:45 Band Neutrophils % 2 % (0-2) 12/03/18 08:45 Lymphocytes % (Manual) 4 % (20-50) L 12/03/18 08:45 Monocytes % (Manual) 3 % (0-10) 12/03/18 08:45 Eosinophils % (Manual) 3 % (0-7) 12/03/18 08:45 Platelet Estimate Normal (NORMAL) 12/03/18 08:45 Plt Clumps, EDTA Present 12/03/18 08:45 Hypochromasia (manual) Moderate 12/03/18 08:45 Anisocytosis (manual) Slight 12/03/18 08:45 Ovalocytes Slight 12/03/18 08:45 PT 14.7 Seconds (9.8-13.1) H 12/03/18 08:45 INR 1.3 12/03/18 08:45 APTT 28.3 Seconds (25.6-37.1) 12/03/18 08:45 pCO2 52 mm/Hg (35-45) H 12/03/18 09:01 pO2 27 mm/Hg (80-100) L* 12/03/18 09:01 HCO3 26.4 mmol/L (21-28) 12/03/18 09:01 ABG pH 7.37 (7.35-7.45) 12/03/18 09:01 ABG Total CO2 31.7 mmol/L (22-28) H 12/03/18 09:01 ABG O2 Saturation 50.9 % (95-98) L 12/03/18 09:01 ABG Base Excess 3.6 mmol/L (-2.0-3.0) H 12/03/18 09:01 Johnny Test Yes 12/03/18 09:01 ABG Potassium 4.1 mmol/L (3.6-5.2) 12/03/18 09:01 Sodium 138.0 mmol/L (132-148) 12/03/18 09:01 Chloride 102.0 mmol/L (98-107) 12/03/18 09:01 Glucose 169 mg/dL (75-110) H 12/03/18 09:01 Lactate 2.5 mmol/L (0.7-2.1) H 12/03/18 09:01 FiO2 21.0 % 12/03/18 09:01 Blood Gas Comments Lac=2.5 12/03/18 09:01 Crit Value Called To radha Cat 12/03/18 09:01 Crit Value Called By 22 12/03/18 09:01 Crit Value Read Back Y 12/03/18 09:01 Blood Gas Notified Time 911 12/03/18 09:01 Sodium 136 mmol/l (132-148) 12/03/18 14:13 Potassium 4.4 MMOL/L (3.6-5.0) 12/03/18 14:13 Chloride 101 mmol/L (98-107) 12/03/18 14:13 Carbon Dioxide 26 mmol/L (22-30) 12/03/18 14:13 Anion Gap 13 (10-20) 12/03/18 14:13 BUN 19 mg/dl (9-20) 12/03/18 14:13 Creatinine 0.6 mg/dl (0.8-1.5) L 12/03/18 14:13 Est GFR ( Amer) > 60 12/03/18 14:13 Est GFR (Non-Af Amer) > 60 12/03/18 14:13 Random Glucose 298 mg/dL (75-110) H 12/03/18 14:13 Calcium 8.2 mg/dL (8.4-10.2) L 12/03/18 14:13 Total Bilirubin 0.5 mg/dl (0.2-1.3) 12/03/18 08:45 AST 21 U/L (17-59) 12/03/18 08:45 ALT 44 U/L (21-72) 12/03/18 08:45 Alkaline Phosphatase 89 U/L (38-126) 12/03/18 08:45 Troponin I < 0.0120 ng/mL (0.00-0.120) 12/03/18 08:45 NT-Pro-B Natriuret Pep 542 pg/ml (0-900) 12/03/18 08:45 Total Protein 5.7 G/DL (6.3-8.2) L 12/03/18 08:45 Albumin 2.6 g/dL (3.5-5.0) L D 12/03/18 08:45 Globulin 3.1 gm/dL (2.2-3.9) 12/03/18 08:45 Albumin/Globulin Ratio 0.9 (1.0-2.1) L 12/03/18 08:45 Arterial Blood Potassium 4.1 mmol/L (3.6-5.2) 12/03/18 09:01 Urine Color Yellow (YELLOW) 12/03/18 11:43 Urine Clarity Slighty-cloudy (Clear) 12/03/18 11:43 Urine pH 6.0 (5.0-8.0) 12/03/18 11:43 Ur Specific [place] 1.054 (1.003-1.030) H 12/03/18 11:43 Urine Protein 30 mg/dL (NEGATIVE) 12/03/18 11:43 Urine Glucose (UA) Neg mg/dL (NEGATIVE) 12/03/18 11:43 Urine Ketones Negative mg/dL (NEGATIVE) 12/03/18 11:43 Urine Blood Negative (NEGATIVE) 12/03/18 11:43 Urine Nitrate Negative (NEGATIVE) 12/03/18 11:43 Urine Bilirubin Negative (NEGATIVE) 12/03/18 11:43 Urine Urobilinogen 0.2-1.0 mg/dL (0.2-1.0) 12/03/18 11:43 Ur Leukocyte Esterase Neg Elizabeth/uL (Negative) 12/03/18 11:43 Urine RBC (Auto) 4 /hpf (0-3) H 12/03/18 11:43 Urine Microscopic WBC 1 /hpf (0-5) 12/03/18 11:43 - Hospital Course Hospital Course: 78-year-old male with PMH of left lower lobe mass and sigmoid colon mass presents to [facility] ED for diffuse body aches, severe right-sided mid-axillary/anterior-axillary pain, left groin pain (at location of hernia), difficulty swallowing and SOB. Chest CT (12/03): 13cm soft tissue mass occupying the left lower lobe. Direct extension to the left hilum and mediastinum with right hilar lymphadenopathy as well. Loculated right pleaural effusion. Minimal left pleural effusion. There is narrowing of the right main pulmonary artery as well as of multiple left pulmonary artery branches, as result of neoplastic mass effect. No evidence of arterial occlusion. No evidence of pulmonary arterial embolism. Oncology consulted, Manda Shah, recommended hospice care as prognosis is poor. Pt was treated with pain control and O2 NC, pallative and hospice consulted, family present and decided on no further intervention, comfort care via home hospice. Discharge Exam - Head Exam Head Exam: ATRAUMATIC, NORMAL INSPECTION, NORMOCEPHALIC - ENT Exam ENT Exam: Mucous Membranes Moist - Respiratory Exam Respiratory Exam: absent: Respiratory Distress Additional comments: tender palpable mass on R mid-anterior axillary - Cardiovascular Exam Cardiovascular Exam: REGULAR RHYTHM - GI/Abdominal Exam GI & Abdominal Exam: Unremarkable - Neurological Exam Neurological exam: Alert - Psychiatric Exam Psychiatric exam: Normal Affect, Normal Mood - Skin Skin Exam: Normal Color Discharge Plan - Discharge Medications Prescriptions: Fentanyl 1 each TD Q72 #2 patch.td72 Morphine [Morphine Sulfate] 15 mg PO PRN PRN #3 tab PRN Reason: Pain, Severe (8-10) - Follow Up Plan Condition: FAIR Disposition: HOME/ ROUTINE Referrals: Thomas Casey MD [Primary Care Provider] - <Nai Yepez - Last Filed: 12/05/18 15:30> Provider - Provider Date of Admission: 12/03/18 11:59 Attending physician: Nai Yepez DO Primary care physician: Thomas Casey MD Consults: 12/03/18 13:45 Palliative Care Consult Stat Comment: Consulting Provider: Dinorah Morelos Physician Instructions: Reason For Exam: end-stage ca x2, family wants comfort care 12/03/18 15:48 Hematology Oncology Consult Routine Comment: Consulting Provider: Cornell Shah Consulting Physician: Cornell Shah Reason for Consult: lung mass effect, colon mass 12/04/18 09:23 Physician Consult Routine Comment: Consulting Provider: Roger Luz Consulting Physician: Roger Luz Reason for Consult: pleural effusion drainage, biopsy Additional Comments: pleural effusion drainage for cytology and biopsy of right chest mass for diagnosis - pt too ill to undergo operative biopsy Hospital Course - Lab Results Lab Results: Micro Results 12/03/18 08:45 Blood Blood Culture - Preliminary NO GROWTH AFTER 48 HOURS 12/03/18 13:50 Blood Blood Culture - Preliminary NO GROWTH AFTER 24 HOURS 12/03/18 11:43 Urine,Clean Catch Urine Culture - Final No Growth (<1,000 CFU/ML) Most Recent Lab Values WBC 11.4 K/uL (4.8-10.8) H 12/03/18 14:13 RBC 4.25 Mil/uL (4.40-5.90) L 12/03/18 14:13 Hgb 10.8 g/dL (12.0-18.0) L 12/03/18 14:13 Hct 34.2 % (35.0-51.0) L 12/03/18 14:13 MCV 80.3 fl (80.0-94.0) 12/03/18 14:13 MCH 25.3 pg (27.0-31.0) L 12/03/18 14:13 MCHC 31.5 g/dL (33.0-37.0) L 12/03/18 14:13 RDW 16.1 % (11.5-14.5) H 12/03/18 14:13 Plt Count 337 K/uL (130-400) 12/03/18 14:13 MPV 7.8 fl (7.2-11.7) 12/03/18 08:45 Neut % (Auto) 88.3 % (50.0-75.0) H 12/03/18 08:45 Lymph % (Auto) 4.2 % (20.0-40.0) L 12/03/18 08:45 [place] % (Auto) 5.8 % (0.0-10.0) 12/03/18 08:45 Eos % (Auto) 1.2 % (0.0-4.0) 12/03/18 08:45 Baso % (Auto) 0.5 % (0.0-2.0) 12/03/18 08:45 Neut # (Auto) 10.0 K/uL (1.8-7.0) H 12/03/18 08:45 Lymph # (Auto) 0.5 K/uL (1.0-4.3) L 12/03/18 08:45 [place] # (Auto) 0.7 K/uL (0.0-0.8) 12/03/18 08:45 Eos # (Auto) 0.1 K/uL (0.0-0.7) 12/03/18 08:45 Baso # (Auto) 0.1 K/uL (0.0-0.2) 12/03/18 08:45 Neutrophils % (Manual) 88 % (42-75) H 12/03/18 08:45 Band Neutrophils % 2 % (0-2) 12/03/18 08:45 Lymphocytes % (Manual) 4 % (20-50) L 12/03/18 08:45 Monocytes % (Manual) 3 % (0-10) 12/03/18 08:45 Eosinophils % (Manual) 3 % (0-7) 12/03/18 08:45 Platelet Estimate Normal (NORMAL) 12/03/18 08:45 Plt Clumps, EDTA Present 12/03/18 08:45 Hypochromasia (manual) Moderate 12/03/18 08:45 Anisocytosis (manual) Slight 12/03/18 08:45 Ovalocytes Slight 12/03/18 08:45 PT 14.7 Seconds (9.8-13.1) H 12/03/18 08:45 INR 1.3 12/03/18 08:45 APTT 28.3 Seconds (25.6-37.1) 12/03/18 08:45 pCO2 52 mm/Hg (35-45) H 12/03/18 09:01 pO2 27 mm/Hg (80-100) L* 12/03/18 09:01 HCO3 26.4 mmol/L (21-28) 12/03/18 09:01 ABG pH 7.37 (7.35-7.45) 12/03/18 09:01 ABG Total CO2 31.7 mmol/L (22-28) H 12/03/18 09:01 ABG O2 Saturation 50.9 % (95-98) L 12/03/18 09:01 ABG Base Excess 3.6 mmol/L (-2.0-3.0) H 12/03/18 09:01 Johnny Test Yes 12/03/18 09:01 ABG Potassium 4.1 mmol/L (3.6-5.2) 12/03/18 09:01 Sodium 138.0 mmol/L (132-148) 12/03/18 09:01 Chloride 102.0 mmol/L (98-107) 12/03/18 09:01 Glucose 169 mg/dL (75-110) H 12/03/18 09:01 Lactate 2.5 mmol/L (0.7-2.1) H 12/03/18 09:01 FiO2 21.0 % 12/03/18 09:01 Blood Gas Comments Lac=2.5 12/03/18 09:01 Crit Value Called To radha Cat 12/03/18 09:01 Crit Value Called By 22 12/03/18 09:01 Crit Value Read Back Y 12/03/18 09:01 Blood Gas Notified Time 911 12/03/18 09:01 Sodium 136 mmol/l (132-148) 12/03/18 14:13 Potassium 4.4 MMOL/L (3.6-5.0) 12/03/18 14:13 Chloride 101 mmol/L (98-107) 12/03/18 14:13 Carbon Dioxide 26 mmol/L (22-30) 12/03/18 14:13 Anion Gap 13 (10-20) 12/03/18 14:13 BUN 19 mg/dl (9-20) 12/03/18 14:13 Creatinine 0.6 mg/dl (0.8-1.5) L 12/03/18 14:13 Est GFR ( Amer) > 60 12/03/18 14:13 Est GFR (Non-Af Amer) > 60 12/03/18 14:13 Random Glucose 298 mg/dL (75-110) H 12/03/18 14:13 Calcium 8.2 mg/dL (8.4-10.2) L 12/03/18 14:13 Total Bilirubin 0.5 mg/dl (0.2-1.3) 12/03/18 08:45 AST 21 U/L (17-59) 12/03/18 08:45 ALT 44 U/L (21-72) 12/03/18 08:45 Alkaline Phosphatase 89 U/L (38-126) 12/03/18 08:45 Troponin I < 0.0120 ng/mL (0.00-0.120) 12/03/18 08:45 NT-Pro-B Natriuret Pep 542 pg/ml (0-900) 12/03/18 08:45 Total Protein 5.7 G/DL (6.3-8.2) L 12/03/18 08:45 Albumin 2.6 g/dL (3.5-5.0) L D 12/03/18 08:45 Globulin 3.1 gm/dL (2.2-3.9) 12/03/18 08:45 Albumin/Globulin Ratio 0.9 (1.0-2.1) L 12/03/18 08:45 Arterial Blood Potassium 4.1 mmol/L (3.6-5.2) 12/03/18 09:01 Urine Color Yellow (YELLOW) 12/03/18 11:43 Urine Clarity Slighty-cloudy (Clear) 12/03/18 11:43 Urine pH 6.0 (5.0-8.0) 12/03/18 11:43 Ur Specific [place] 1.054 (1.003-1.030) H 12/03/18 11:43 Urine Protein 30 mg/dL (NEGATIVE) 12/03/18 11:43 Urine Glucose (UA) Neg mg/dL (NEGATIVE) 12/03/18 11:43 Urine Ketones Negative mg/dL (NEGATIVE) 12/03/18 11:43 Urine Blood Negative (NEGATIVE) 12/03/18 11:43 Urine Nitrate Negative (NEGATIVE) 12/03/18 11:43 Urine Bilirubin Negative (NEGATIVE) 12/03/18 11:43 Urine Urobilinogen 0.2-1.0 mg/dL (0.2-1.0) 12/03/18 11:43 Ur Leukocyte Esterase Neg [place]/uL (Negative) 12/03/18 11:43 Urine RBC (Auto) 4 /hpf (0-3) H 12/03/18 11:43 Urine Microscopic WBC 1 /hpf (0-5) 12/03/18 11:43 Attending/Attestation - Attestation I have personally seen and examined this patient.: Yes I have fully participated in the care of the patient.: Yes I have reviewed all pertinent clinical information, including history, physical exam and plan: Yes Notes (Text): 12/05/18 15:28 78-year-old male past medical history of lung mass left lower lobe, mass of sigmoid colon, patient of Dr. Yeimi Shah, presented to ED with hypoxia and dysphasia. CT of the chest showed several soft tissue masses with mass-effect in the left hilum, mediastinum, in addition to right hilar lymphadenopathy. There is also a loculated right pleural effusion. Patient received pain co ntrol, was evaluated by hematology oncology, as well as palliative care. Patient is set up to go home on home hospice. Agree with findings and plan as above.
[2018-12-04 16:22] VITALS: BP 135/70; PULSE 77; RESP 18; TEMP 97.1; O2SAT 95
--- NOTE | 2018-12-07 10:48 | PQF ---
PROVIDER RESPONSE TEXT: HYPOXIA PER H AND P REVIEWER QUERY TEXT: Condition Necessitating Admission DR. 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 THERE ARE DIFFERENT ICD-10 CODES FOR LUNG CA VS. LUNG MASS. PLEASE CLARIFY REASON FOR ADMISSION ADVANCED LUNG CA OR LUNG MASS. Please clarify the medical conditions and the associated clinical risk factors necessitating admissio n. The patient's Clinical Indicators include: XXX Query created by: Maira Vogel on 12/07/2018 10:42 AM Electronically signed by: Nai Yepez MD 12/07/2018 10:45 AM
--- NOTE | 2018-12-14 11:44 | PQF ---
PROVIDER RESPONSE TEXT: LUNG CA HYPOXIA DUE TO LUNG CA REVIEWER QUERY TEXT: Symptom Underlying Cause PLEASE CLARIFY IF THE REASON FOR HYPOXIA/ ADVANCED LUNG CA PATH NOT KNOWN OR LUNG MASS (NONSPECIFIC A BNORMAL FINDING OF LUNG FIELD)? Please document the underlying diagnosis causing the patient?s documented symptom(s) or whether those are insignificant or unable to be further specified. The patient's Clinical Indicators include: DR. Manda SPICER CONSULT WITH THE FOLLOWING IMPRESSION: ADVANCED LUNG CANCER PATHOLOGY NOT KNOWN. ADRENAL MASS AND MASS IN SIGMOID COLON, METASTATIC LESION IN THE RIB RIB CAGE. THERE ARE DIFFERENT ICD-10 CODES FOR LUNG CA VS. LUNG MASS. Query created by: Maira Vogel on 12/08/2018 8:19 AM Electronically signed by: Nai Yepez MD 12/14/2018 11:40 AM
== END 2018-12-04 18:00 | disposition home or self-care (01) | DRG 181 ==
LOC: SUPCPDRO 07:36 → H.ER 07:36 → H.ERHOLD 11:59 → H.MEDSURG1 18:34
PROVIDERS: ADMIT Student in an Organized Health Care Education/Training Program; ATTEND Student in an Organized Health Care Education/Training Program
DX: C34.90 Malignant neoplasm of unspecified part of unspecified bronchus or lung (principal); J90 Pleural effusion, not elsewhere classified; R04.2 Hemoptysis; R91.8 Other nonspecific abnormal finding of lung field; R09.02 Hypoxemia; E27.8 Other specified disorders of adrenal gland; H91.92 Unspecified hearing loss, left ear; K63.9 Disease of intestine, unspecified; R13.10 Dysphagia, unspecified; R47.02 Dysphasia; Z51.5 Encounter for palliative care; Z66 Do not resuscitate; Z85.118 Personal history of other malignant neoplasm of bronchus and lung; Z87.891 Personal history of nicotine dependence; R59.0 Localized enlarged lymph nodes